=== PATIENT | female | born 1990 | race American Indian/Alaskan Native ===

== ENCOUNTER 2017-05-27 20:39 | Emergency (ER) | payer MEDICAID, OTHER ==
[2017-05-27 21:57] VITALS: BMI 27.7
--- NOTE | 2017-05-28 00:36 | US ---
EXAM: US After First Trimester, Transabdominal CLINICAL HISTORY: 27 years old, female; Pain; Pain indication: Abd pain; ; Additional info: Abdominal pain TECHNIQUE: Real-time transabdominal obstetrical ultrasound of the maternal pelvis and a second or third trimester with image documentation. COMPARISON: No relevant prior studies available. FINDINGS: Fetus: Single live intrauterine gestation. Heart rate: heart rate of 135 beats per minute. Presentation: Vertex. Placenta: Anterior placenta. No placenta previa or abruption. Amniotic fluid: MARTITA = 21.2 cm. Anatomy: No gross anomaly is appreciated. BIOMETRICS Gestational age by US: Estimated gestational age of 37 weeks 3 days by measurements. EFW: 3287 g. BPD: 9.1 cm, correlating with 36 weeks 6 days. HC: 32.6 cm, correlating with 37 weeks 0 days. AC: 34.0 cm, correlating with 37 weeks 6 days. FL: 7.5 cm, correlating with 38 weeks 1 day. MATERNAL: Uterus: Unremarkable. No myometrial mass. Cervix: No cervical dilatation or effacement. Adnexa: Ovaries not visualized. No adnexal masses. Free fluid: No significant free fluid. IMPRESSION: 1. Single live intrauterine gestation. 2. Incidental/non-acute findings are described above. EXAM: US Biophysical Profile Without Non-Stress Testing CLINICAL HISTORY: 27 years old, female; Pain; Pain indication: Abd pain; ; Additional info: Abdominal pain TECHNIQUE: Real-time ultrasound of the maternal pelvis for biophysical profile evaluation with image documentation. COMPARISON: No relevant prior studies available. FINDINGS: breathing movements: Present. Score 2/2. Gross body movements: Present. Score 2/2. tone: Present. Score 2/2. Qualitative amniotic fluid volume: Within normal limits. Score 2/2. IMPRESSION: Normal biophysical profile ultrasound. Score 8/8.
--- NOTE | 2017-05-28 00:42 | OBHP ---
Datetime: 05/28/2017 00:36 IP Adm Impression: Term, intrauterine ; No Active Labor IP Admit Plan: Discharge home Admit Comment, IP Provider: chief complaint-spotting HPI 27 y/o at 39.2wga with c/o cramping and noticing spotting Patient repprt active movement.denies abdominal trauma course uncomplicatefd as per patient; pnc with clinic in [place] PMH denies PSH denies OBGYH HX Social hx denies tobacco,alcohol or illicit drug uyse Exam vss afebrile abdomen soft and nontedner extremities no calf tenderness A/P Patient at 39.2wga with c/o contractions.cervix 1 cm dilated.unchanged fater2 hours.bpp 8/8.AF I 21.2 -patient discharged home -follow up in am for MFM scan -labor precautions given Pelvic Type - PN: Adequate Extremities - PN: Normal Abdomen - PN: Normal Back - PN: Normal Lungs - PN: Normal Heart - PN: Normal Neurologic - PN: Normal General - PN: Normal Contraction Comments Provider: occ IP Hx Assessment: The History has been Reviewed and is Current EGA AdmitDate IP: 39.2 Vital Signs Provider: Reviewed; Within Normal Limits IP Chief Complaint: Uterine contractions; Vaginal bleeding FHR Category Provider Fetus A: Category I Dilatation, Provider: 1 Effacement, Provider: 50 Station, Provider: -3 Genitourinary Exam: Normal DTRs - PN: Normal
[2017-05-28 05:00] VITALS: BP 120/71; PULSE 91
== END 2017-05-28 00:59 | disposition home or self-care (01) ==
LOC: C.EROB 20:39
DX: O47.1 False labor at or after 37 completed weeks of gestation (principal); Z3A.39 39 weeks gestation of pregnancy

== ENCOUNTER 2017-05-31 17:15 | Inpatient (IN) | payer OTHER ==
[2017-05-31] MEDS ORDERED: Lactated Ringer's 1,000 ML IV ONE (17:27)
[2017-05-31 18:08] LABS: BASO % 0.1 % (0.0-2.0); EOS % 0.1 % (0.0-4.0); HEMOGLOBIN 10.4 g/dL (11.0-16.0); LYMPH # 1.1 K/uL (1.0-4.3); LYMPH % 5.6 % (20.0-40.0); MEAN CELL VOLUME 85.9 fL (81.0-99.0); MEAN CORPUSCULAR HEMOGLOBIN 29.5 pg (27.0-31.0); MEAN CORPUSCULAR HGB CONC 34.3 g/dL (33.0-37.0); MEAN PLATELET VOLUME 9.5 fL (7.2-11.7); MONO % 5.2 % (0.0-10.0); NEUT # 16.7 K/uL (1.8-7.0); PLATELET COUNT 192 K/uL (130-400); RBC 3.53 Mil/uL (3.80-5.20); RED CELL DISTRIBUTION WIDTH 13.2 % (11.5-14.5); WHITE BLOOD COUNT 18.8 K/uL (4.8-10.8)
[2017-05-31 18:20] LABS: ALBUMIN 3.6 g/dL (3.5-5.0); ALT/SGPT 14 U/L (9-52); AST/SGOT 19 U/L (14-36); BLOOD UREA NITROGEN 6 mg/dL (7-17); CALCIUM 9.2 mg/dl (8.6-10.4); GFR AFRICAN-AMERICAN > 60; GFR NON-AFRICAN AMERICAN > 60
[2017-05-31 18:32] LABS: SQUAMOUS EPITHIAL 5 /hpf (0-5); URINE BACTERIA FEW (<OCC); URINE BILIRUBIN NEGATIVE (NEGATIVE); URINE BLOOD 2+ (NEGATIVE); URINE CLARITY Hazy (Clear); URINE COLOR Yellow (YELLOW); URINE GLUCOSE (UA) NORMAL (Normal); URINE LEUKOCYTE ESTERASE 3+ Leu/uL (Negative); URINE NITRATE NEGATIVE (NEGATIVE); URINE PROTEIN 1+ mg/dL (NEGATIVE); URINE UROBILINOGEN NORMAL mg/dL (0.2-1.0)
[2017-05-31 18:34] LABS: BARBITURATES, UR NEGATIVE (NEGATIVE); BENZODIAZEPINES, UR NEGATIVE (NEGATIVE); OPIATES, UR NEGATIVE (NEGATIVE); PHENCYCLIDINE, UR NEGATIVE (NEGATIVE)
[2017-05-31] MEDS ORDERED: Penicillin G 5 Million Unit Vial IVPB ONE (18:34)
[2017-05-31] MEDS ORDERED: Sodium Citrate/Citric Acid 15 ml Sol PO ONE (19:21)
[2017-05-31] MEDS ORDERED: cefOXitin IV 2 gm in Dextrose 2 GM/50 ML BAG IVPB ONE (19:21)
[2017-05-31 19:40] LABS: PROTHROMBIN TIME 11.1 SECONDS (9.7-12.2)
[2017-05-31 19:50] LABS: ANISOCYTOSIS SLIGHT; BANDS 4 % (0-2); LYMPHOCYTE 5 % (20-40); MONOCYTE 6 % (0-10); NEUTROPHIL 85 % (50-75); PLATELET ESTIMATE NORMAL (NORMAL); POIKILOCYTOSIS SLIGHT; TOTAL CELLS COUNTED 100
[2017-05-31 19:51] LABS: HYPOCHROMIC SLIGHT; TARGET CELLS SLIGHT; TEARDROP CELLS SLIGHT
[2017-05-31 19:52] LABS: LARGE PLATELETS PRESENT; OVALOCYTES SLIGHT
[2017-05-31] MEDS ORDERED: cefOXitin 2 GM in Sodium Chloride 0.9% 100 ML IVPB ONE (20:00)
[2017-05-31] MEDS ORDERED: Propofol 10 mg/ml Inj (20 ML) ONE (20:02)
--- NOTE | 2017-05-31 20:56 | US ---
EXAM: US Uterus, Limited CLINICAL HISTORY: 27 years old, female; Pain; Pain indication: Abd pain , tachycardia; ; Patient HX: Prior 05-27-17; Additional info: Abdominal pain, tachycardia TECHNIQUE: Real-time ultrasound of the maternal uterus (limited) with image documentation. COMPARISON: US - OB LTD/BIOPHYSICAL PROFILE 2017-05-27 23:30 FINDINGS: Fetus: Single live intrauterine gestation. Estimated gestational age of 39 weeks 5 days by dates. No gross anomaly is appreciated. Position: Vertex. Heart rate: heart rate of 179 beats per minute. Placenta: Anterior placenta. No placenta previa or abruption. Amniotic fluid: MARTITA = 12.6 cm. IMPRESSION: 1. Single live intrauterine gestation. EXAM: US Biophysical Profile Without Non-Stress Testing CLINICAL HISTORY: 27 years old, female; Pain; Pain indication: Abd pain , tachycardia; ; Patient HX: Prior 05-27-17; Additional info: Abdominal pain, tachycardia TECHNIQUE: Real-time ultrasound of the maternal pelvis for biophysical profile evaluation with image documentation. COMPARISON: US - OB LTD/BIOPHYSICAL PROFILE 2017-05-27 23:30 FINDINGS: breathing movements: Present. Score 2/2. Gross body movements: Present. Score 2/2. tone: Present. Score 2/2. Qualitative amniotic fluid volume: Within normal limits. Score 2/2. IMPRESSION: Normal biophysical profile ultrasound. Score 8/8.
[2017-05-31] MEDS ORDERED: Succinylcholine Chloride 20 mg/ml Syr (5 ml) IV ONE (21:06)
[2017-05-31] MEDS ORDERED: Oxytocin 10 Units/ml Inj ONE (21:08)
[2017-05-31] MEDS ORDERED: Oxycodone/Acetaminophen 5/325 mg Tab PO PRN ×2 (22:11)
[2017-05-31] MEDS ORDERED: HYDROmorphone 0.5 mg/0.5 ml ISec IVP PRN (22:47)
--- NOTE | 2017-06-01 00:49 | OBDS ---
DELIVERY PERSONNEL Delivery Doctor: Pascual Winchester MD Field Geologist: Catrina Quinones RN Anesthesiologist: Jessika Adams MD Resident: TRIP ARORA MATERNAL INFORMATION Delivery Anesthesia: General Medications in Delivery: PITOCIN _ HEMABATE Estimated Blood Loss (ml): 1000 Placenta Cultured: No Maternal Complications: Maternal Fever; Uterine Tachysystole RN Comments: LIVE BABY GIRL 9/9 Provider Comments: Uncomplicated primary LTCS with atraumatic delivery of live female , LOT, w eight 8lb 9oz, 's 9/9. Loose nuchal cord x 1 easily reduced over 's head. Manual extractio n of placenta; no gross evidence of abruption. Grossly normal placenta; 3 vessel cord. Routine closur e of uterus. Bladder flap reapproximated. Left ovarian cyst noted 4 x 5 x 3 cm - probable dermoid cys t (sebum and hair retrieved upon entering cyst). Left ovarian cystectomy performed. Otherwise, normal fallopian tubes bilaterally, and normal right ovary. Copious irrigation performed. Hemostasis assure d. Routine closure. Skin reapproximated in a subcuticular fashion. Patient tolerated procedure well; to LDR#2 in stable conditio. Infant to nursery - also in stable condition. LABOR SUMMARY EDC: 06/02/2017 00:00 No. Babies in Womb: 1 Attempted: No Labor Anesthesia: None LABOR INFORMATION Onset of Labor: 05/31/2017 15:00 Group B Beta Strep: Positive MEMBRANES Membranes Rupture Method: Artificial STAGES OF LABOR Stage 3 hrs: 0 Stage 3 min: 1 Total Time in Labor hrs: 6 Total Time in Labor min: 2 CSECTION DELIVERY Primary Indication: tachycardia Other Primary Indication: Uterine tachysystole Secondary Indication: Maternal fever Other Secondary Indication: Uterine tenderness CSection Incision: Lower Uterine Transverse Uterine Closure: Double-layer closure BABY A INFORMATION Delivery Date/Time: 05/31/2017 21:01 Method of Delivery: Born in Route : No : N/A Forceps: N/A Vacuum Extraction: N/A Shoulder Dystocia : No SHOULDER DYSTOCIA BABY A Infant Delivery Date/Time: 05/31/2017 21:01 PRESENTATION/POSITION BABY A Presentation: Cephalic Cephalic Presentation: Vertex Vertex Position: Left Occipital Transverse Breech Presentation: N/A PLACENTA INFORMATION BABY A Placenta Delivery Time : 05/31/2017 21:02 Placenta Method of Delivery: Manual Removal Placenta Status: Delivered SCORES BABY A Heart Rate 1 min: >100 bpm Resp Effort 1 min: Good Cry Reflex Irritability 1 min: Cough or Sneeze or Pulls Away Muscle Tone 1 min: Active Motion Color 1 min: Body [place], Extremities Blue Resuscitation Effort 1 min: Tactile Stimulation; Oxygen SCORE 1 MIN: 9 Heart Rate 5 min: >100 bpm Resp Effort 5 min: Good Cry Reflex Irritability 5 min: Cough or Sneeze or Pulls Away Muscle Tone 5 min: Active Motion Color 5 min: Body [place], Extremities Blue Resuscitation Effort 5 min: Tactile Stimulation SCORE 5 MIN: 9 INFANT INFORMATION BABY A Gestational Age at Delivery: 39.5 Gestational Status: Term Infant Outcome : Liveborn Infant Condition : Stable Infant Sex: Female IDENTIFICATION/MEDS BABY A ID Band Number: [id number] ID Band Location: Left Leg; Left Arm Sensor Applied: Yes Sensor Number: [id number] Sensor Location : Cord Clamp WEIGHT/LENGTH BABY A Birthweight (gms): 3885 Infant Weight (lb): 8 Weight (oz): 9 Infant Length Inches: 21.00 Length cms: 53.3 CORD INFORMATION BABY A No. Cord Vessels: 3 Nuchal Cord : Around Neck x1, Loose Cord Blood Taken: Yes Infant Suction: Mouth; Nose; Pharynx ASSESSMENT BABY A Infant Complications: None Physical Findings at Delivery: Within Normal Limits Infant Respirations: Appears Normal Cigarette Seller/ALS Called : No Care By: /JULIA AYALA Transferred To: [facility]
--- NOTE | 2017-06-01 01:22 | PCM.SURG1 ---
Surgeon's Initial Post Op Note - Surgeon's Notes Surgeon: Edith Winchester MD Sugar Cane Planter: Neeta Rangel DO, PGY-1. 2nd Assist: Piotr Maxwell MS-3 Type of Anesthesia: General Endo Anesthesia Administered By: Catalina Adams MD Pre-Operative Diagnosis: 39w 5d, tachycardia, uterine tachysystole, maternal fever; remote from delivery Operative Findings: Live female , LOT position, Weight 8lb 9oz; 's 9/ 9. Normal uterus. Normal right ovary and fallopian tubes bilaterally. Left ovarian cyst, 5 x 5 x 4 cm - upon opening, sebum, grease and hair Post-Operative Diagnosis: S/P primary LTCS; left dermoid cyst Operation Performed: Primary transverse lower uterine segment section; left ovarian cystectomy Specimen/Specimens Removed: Placenta; left ovarian cyst with contents Estimated Blood Loss: EBL {In ML}: 1,000 (U.O. 500 mL clear urine; 1800 mL total with 40 units pitocin in 1st litre. Hemabate 250 micrograms IM x 1 also given) Blood Products Given: N/A Drains Used: No Drains Post-Op Condition: Good Date of Surgery/Procedure: 05/31/17 Time of Surgery/Procedure: 22:00
[2017-06-01] MEDS: cefOXitin 2 GM in Sodium Chloride 0.9% 100 ML IVPB SCH ×3 (04:29→20:14)
[2017-06-01 07:53] LABS: BASO % 0.1 % (0.0-2.0); LYMPH # 1.2 K/uL (1.0-4.3); LYMPH % 5.7 % (20.0-40.0); MEAN CELL VOLUME 86.6 fL (81.0-99.0); MEAN CORPUSCULAR HEMOGLOBIN 29.9 pg (27.0-31.0); MEAN CORPUSCULAR HGB CONC 34.5 g/dL (33.0-37.0); MEAN PLATELET VOLUME 9.8 fL (7.2-11.7); MONO # 0.9 K/uL (0.0-0.8); MONO % 4.5 % (0.0-10.0); NEUT # 18.5 K/uL (1.8-7.0); NEUT % 89.7 % (50.0-75.0); PLATELET COUNT 142 K/uL (130-400); WHITE BLOOD COUNT 20.6 K/uL (4.8-10.8)
[2017-06-01 08:06] LABS: HEMOGLOBIN 7.8 g/dL (11.0-16.0)
--- NOTE | 2017-06-01 08:21 | OBADHP ---
Datetime: 05/31/2017 18:10 Admit Comment, IP Provider: 27 y.o. , LMP unsure, ZACH 06/02/17, EGA 39w 5d c/o sudden onset l ower abdominal pain, right > left, while picking up son from school; pain scale 10/10; localized to a bdomen. Patient was seen on L_D 05/27 with c/o vaginal bleeding. Sono performed then - Anterior plac enta, no evidence of praevia or abruption; cephalic; EFW 3287 gram; BPS 8/8 (MARTITA 21.2cm). ca re: [place]/ [place]: noted for trich infection x 3 (12/31, 03/02, 05/03); placenta praevia suspected 12/31; ruled out 03/06/17. P Ob: 2014, , male, 7lb 14oz, [facility]; no complications. VTOP x 2, both first trimestre; w ith D_C, no complications P BOARDMARKER: 12 x monthly x 3-5. No other STIs, abnormal Pap, fibroids or ovarian cysts PMH: denies PSH: D_C x 2 NKDA Meds: PNV Soc Hx: denies tobacco., illicit drug or EtOH use. x 6 years. 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 Fam Hx: Mother alive 50 y.o. Breast cancer survivor x 10 yrs, DM. Father alive 50 y.o. DM. No othe r P.E.: as above. WD in pain with contractions. Awake, alert, oriented to time, person and place. Pl easant and cooperative. present Assessment: 27 y.o., 39w 5d, uterine tachysystole, tachycardia (temp 100 Fahrenheit ), variable deceleration, not in labor. DDX: abruption. chart review noted for cardiac eval uation for c/o dyspnea: S/P maternal ECHO - EF 78%; grossly normal ventricular function; mild mitral regurgitation. Also, patient noted to be anemic - most recent H/H 02/12.2, patient with h/o sickle c ell trait. GBS UTI, treated 02/2017. Labs noted for WBC 18; H/H 10.8/ Plan: 1) Admit 2) NPO 3) Continuous EFM 4) CBC, comp, coagulation profile, HIV, RPR, T_S 5) Observe Addendum: 1930 hours repeat Temp 101.4; FHR remain 180s bpm; decreased variability. Uterine tachysystole continues. Abdominal tenderness not improved D/W patient and concern for: abruption versus infection. R/B/C of continuing bill umu delivery were discussed. As patient is only 1-2 cm, remote from delivery, abdominal delivery was recommended. Patient and 's questions were addressed and answered. The couple were left alone to come to a decision. Patient is S/P portable ultrasound: no evidence of abruption. BPS 8/8; MARTITA 12. cm. It was discuss ed with the couple that BPP is reassuring at this time; however, fetus remains tachycardia, patient s till with painful contractions every 1 minute and uterus remains tender. With fever, chorioramnioniti s is more likely, however, abruption has not been ruled out. As patient is remote from delivery C/S is still recommended. Patient has agreed to proceed with C/S. Plan: 1) Abdominal prep and shave 2) Soto 3) Notify peds, 4) Notify anesthesia 5) call box wirer to O.R. Pelvic Type - PN: Adequate Extremities - PN: Normal Abdomen - PN: Abnormal Back - PN: Normal Breast - PN: Not Done Lungs - PN: Normal Heart - PN: Normal Thyroid - PN: Not Done Neurologic - PN: Normal HEENT - PN: Normal General - PN: Normal Presentation-Admit: Vertex FHR - Baseline A Provider: 180 Contraction Comments Provider: 1 minute Comments, ACOG Physical Exam: Abdomen: Gravid. firm; (+) tender in all quadrants; with and without contractions. Fundal height 39cm All other systems reviewed - see History/Assessment Gestation - Est Wks by US: 39w 5d Vital Signs Provider: Reviewed; Within Normal Limits IP Chief Complaint: Uterine contractions NICHD Decel Fetus A IP Provider: Variable Dilatation, Provider: 1 Effacement, Provider: 30 Station, Provider: -3 Genitourinary Exam: Normal DTRs - PN: Not Done EGA AdmitDate IP: 39.5 IP Adm Impression: Term, intrauterine ; No Active Labor IP Admit Plan: Admit to unit Datetime: 05/28/2017 00:36 IP Hx Assessment: The History has been Reviewed and is Current FHR Category Provider Fetus A: Category I
[2017-06-01] MEDS: Simethicone 80 mg Chewtab PO SCH ×4 (10:24→22:09)
[2017-06-01 10:43] LABS: TOTAL CELLS COUNTED 100
[2017-06-01 10:45] LABS: BANDS 9 % (0-2); LYMPHOCYTE 7 % (20-40); MONOCYTE 3 % (0-10); NEUTROPHIL 81 % (50-75)
[2017-06-01 10:46] LABS: PLATELET ESTIMATE NORMAL (NORMAL)
--- NOTE | 2017-06-01 10:46 | OP ---
PROCEDURE DATE: 05/31/2017. SURGEON: Edith Winchester MD. FELT DYEING MACHINE TENDER: Neeta Rangel DO PGY-1. SECOND SWEET PICKLE MAKER: Piotr Maxwell MS-3. ANESTHESIA: General with endotracheal intubation. ANESTHESIOLOGIST: Valarie Akers MD PREOPERATIVE DIAGNOSES: 39 weeks and 5 days gestation, tachycardia, uterine tachysystole, maternal fever remote from delivery. POSTOPERATIVE DIAGNOSES: 39 weeks and 5 days gestation, tachycardia, uterine tachysystole, maternal fever remote from delivery. Left dermoid cyst. OPERATIVE FINDINGS: Live female infant, left occipital transverse position, weight 8 pounds 9 ounces, 's 9 and 9 at one and five minutes, respectively. Normal uterus, normal right ovary and normal fallopian tubes bilaterally. Left ovarian cyst approximately 5 x 5 x 4 cm and upon opening sebum and hair were noted. OPERATION PERFORMED: 1) Primary transverse lower uterine segment Caesarean section. 2) left ovarian cystectomy. SPECIMENS: Placenta and left ovarian cyst with its contents. ESTIMATED BLOOD LOSS: 1000 mL. URINE OUTPUT: 500 mL. TOTAL INTRAVENOUS FLUIDS: 1800 mL: first 1000 mL was with 40 units of Pitocin and the second 800 was with 20 units Pitocin. Hemabate 250 micrograms IM were also given. BLOOD PRODUCTS: None. COMPLICATIONS: None. PROCEDURE: The patient was taken to the operating room after having obtained informed consent for the anticipated procedure. This included a discussion of potential risks and complications including but not limited to infection, hemorrhage requiring a blood transfusion, repair of any damage to internal organs, possible Caesarean hysterectomy. The patient had expressed an understanding and all questions were answered. The patient had received Mefoxin 2 gm prior to being transferred to the recovery room: her abdomen had been prepped and shaved; a Soto catheter had been inserted under sterile conditions. The patient was then transferred to the operating room; on the operating room table, she was placed in a supine position. The abdomen was prepped and draped in the usual sterile fashion. General anesthesia with endotracheal intubation was administered without incident. Once the endotracheal tube was secured, Pfannenstiel incision was made on the skin using a scalpel. The incision was carried down through the subcutaneous tissue using the same scalpel. The fascia was nicked and it was by blunt dissection. Rectus muscle was by blunt dissection and the peritoneal cavity was entered by blunt dissection. A transverse incision was then made on lower uterine segment. Amniotomy was performed and fluid was clear. Atraumatic delivery of the infant with the findings as above. Upon presenting of the head, loose nuchal cord was noticed - it was easily reduced over the 's head. The rest of the body was delivered without incident. On the operative field, the infant's mouth and nose were bulb suctioned as the umbilical cord was doubly clamped and cut. The was handed off the operative field to the extract wringer in attendance. A segment umbilical cord was obtained for cord pH analysis. Manual extraction of the placenta was then performed; it was grossly intact with three vessels present in the cord. The uterus was exteriorized for closure. On the operative field, it was noted to be boggy; the decision was made to add in addition to the first 20 units of Pitocin, an additional 20 units for total of 40; also, Hemabate 250 micrograms were administered. The uterus was then firm. Uterine closure then ensued in two layers. The first layer with a running interlocking fashion using 0 Vicryl, the second layer was in a horizontal imbricating fashion. After assuring hemostasis, attention was directed to the posterior aspect of the uterus. Copious irrigation was performed. Attention was then redirected to the uterine incision, it was noted to be hemostatic. The bladder flap had been created; the peritoneal reflection was reapproximated using 2-0 chromic in a running fashion. Upon examining the pelvic organs, the decision was made to perform a cystectomy. Several moist lap pads were placed at the base of the left ovary and cyst. Using a scalpel, an incision was made on the tunica albuginea of the left ovary. A small amount of greasy cystic fluid of the cyst were released. The cyst wall was identified and using alternating traction and counter traction, left ovarian cystectomy was performed. During this procedure congealed grease/sebum and hair were noted. The cyst was removed more or less intact. Hemostasis was assured using the Bovie electrocautery. Surgicel was placed and the edges of the ovary were reapproximated using 4-0 Monocryl in a running interlocking fashion. Hemostasis was assured. Additional irrigation was performed. The uterus was returned to the abdominal cavity. The paracolic gutters were cleared of all debris. Hemostasis was assured. The parietal peritoneum was reapproximated using 2-0 chromic in a running fashion and the rectus muscle was reapproximated using 2-0 chromic in a running fashion. Fascia was reapproximated using 1-0 Vicryl in a running fashion in one stitch. The subcutaneous tissue was reapproximated using plain catgut in a running fashion and the skin was reapproximated using 4-0 Vicryl in a Mele needle. Steri-Strips were applied as was a pressure dressing. The patient was then positioned in a frog-leg manner and uterine evacuation was performed with the egress of additional blood and clots. The uterus was firm and contracted, approximately at the level of the umbilicus. The patient tolerated the procedure well. She was transferred back to [facility] in stable condition. The had been [facility] in stable condition. Edith Winchester MD MTDRogerio
[2017-06-01 10:47] LABS: TEARDROP CELLS SLIGHT
--- NOTE | 2017-06-01 16:59 | OBPPN ---
Datetime: 06/01/2017 09:52 PP Pain Prov: Within normal limits PP Nausea Prov: Denies PP Flatus Prov: No PP BM Prov: No PP Breasts Prov: Normal PP Heart Prov: Normal PP Lungs Prov: Normal PP Abdomen/Uterus Prov: Normal PP Lochia Prov: Normal PP Vulva/Perineum Prov: Normal PP CVA Tenderness Prov: Normal PP Extremities Prov: Normal PP Impression Prov: Normal progression PP Plan Prov: Continue present management PP Progress Note Prov: Patient seen and examined at bedside. Per nursing no acute events overnight. Patient is doing well, pain is controlled. Lochia is moderate. Not yet ambulating, bauer in draining clear yellow urine. Denies passing flatus or BM. Breast feeding. Denies headaches, dizziness, cp, pal pitations, sob, urinary symptoms. VS: 114/67 92 99.2 I/O: 3125/1400 Gen: AAOx3 CV: RRR Lungs: CTA B/L Abd: Soft, appropriately tender, fundus firm below umbilicus, dressing c/d/i Ext: No clubbing, cyanosis, edema; no calf tenderness Labs: 18.8>10.4/30.3<192 20.6>7.8/22.5<142 O positive Rubella non-immune A/P: 27 year old at 39w5d s/p PLTCD 2/2 tachycardia POD#1 -Stable, afebrile -Pain control: percocet and motrin prn -F/U rubella -Continue antibiotics -Advance diet as tolerated -Remove bauer if urine output adequate, f/u voiding trial -Encourge -Continue routine care -Plan discussed with attending Neeta Rangel DO PGY-1 agree iwth above pt seen adn examiend pain mangment f/u am labs bowel remigement encuarbe ambuaitn, bresast feeding Vital Signs Provider PP: Reviewed; Within Normal Limits
[2017-06-02 07:20] LABS: BASO # 0.1 K/uL (0.0-0.2); BASO % 0.3 % (0.0-2.0); EOS # 0.1 K/uL (0.0-0.7); EOS % 0.4 % (0.0-4.0); HEMOGLOBIN 7.4 g/dL (11.0-16.0); LYMPH # 1.6 K/uL (1.0-4.3); LYMPH % 7.5 % (20.0-40.0); MEAN CELL VOLUME 86.5 fL (81.0-99.0); MEAN CORPUSCULAR HGB CONC 34.7 g/dL (33.0-37.0); MEAN PLATELET VOLUME 9.5 fL (7.2-11.7); MONO # 1.1 K/uL (0.0-0.8); MONO % 5.2 % (0.0-10.0); NEUT # 18.5 K/uL (1.8-7.0); NEUT % 86.6 % (50.0-75.0); PLATELET COUNT 152 K/uL (130-400); RBC 2.46 Mil/uL (3.80-5.20); RED CELL DISTRIBUTION WIDTH 13.2 % (11.5-14.5); WHITE BLOOD COUNT 21.3 K/uL (4.8-10.8)
[2017-06-02] MEDS: Simethicone 80 mg Chewtab PO SCH ×4 (09:15→23:35)
--- NOTE | 2017-06-02 09:25 | OBPPN ---
Datetime: 06/02/2017 08:54 PP Pain Prov: Within normal limits PP Nausea Prov: Denies PP Flatus Prov: Yes PP BM Prov: No PP Breasts Prov: Normal PP Heart Prov: Normal PP Lungs Prov: Normal PP Abdomen/Uterus Prov: Normal PP Lochia Prov: Normal PP Extremities Prov: Normal PP C/S Incision Prov: Normal PP Progress Prov: Normal PP Comments Phys Exam Prov: incision: c/d/i uterus: nt, firm, 2cm below PP Impression Prov: Normal progression PP Plan Prov: Continue present management PP Progress Note Prov: Patient seen and examined at bedside. Per nursning no acute events overnight. Patient is doing well, pain is controlled. Lochia is mild. Ambulating and tolerating diet. Passing f latus, no BM. Urinating without difficulty. Breast feeding. Denies headaches, dizziness, cp, palpitat ions, sob, urinary symptoms. VS: BP: 110/69 HR 96 Temp: 98.1 Gen: AAOx3 CV: RRR Lungs: CTA B/L Breast: non-engorged Abd: Soft, appropriately tender, fundus firm 1 fingerbreath below umbilicus, incision c/d/i with s teristrips Ext: No clubbing, cyanosis, edema; no calf tenderness Labs: 18.8>10.4/30.3<192 20.6>7.8/22.5<192 21.3>7.4/21.3<152 O positive Rubella immune A/P: 27 year old at 39w5d s/p PLTCD 2/2 tachycardia POD#2 -Stable, afebrile -Pain control: percocet and motrin prn -Anemia: Continue ferrous sulfate PO BID -Encourage ambulation and hydration -Encourage -Continue routine care -Anticipate d/c home tomorrow -Plan discussed with Dr Marquez Lee DO PGY-1 Neeta Lee DO PGY-1 [facility] addendum: pt seen _ examined by me w/ dr. lee. agree w/ above assessment and plan. s: denies h/o gastritis/nikolas. tolerates nsaid well. p: d/c medsfor tomorrow feso4, pnv, motrin 600#26 no refill percocet5/325 #26 no rf pt advised percocet can be addicting and to use sparingly when d/c'd home IP PP Procedures: None Vital Signs Provider PP: Reviewed; Within Normal Limits
[2017-06-02 09:31] LABS: BANDS 8 % (0-2); EOSINOPHIL 1 % (0-4); MONOCYTE 5 % (0-10); TOTAL CELLS COUNTED 100
[2017-06-02 09:32] LABS: LYMPHOCYTE 8 % (20-40); NEUTROPHIL 78 % (50-75); PLATELET ESTIMATE NORMAL (NORMAL)
--- NOTE | 2017-06-03 08:16 | OBPPN ---
Datetime: 06/03/2017 08:09 PP Pain Prov: Within normal limits PP Nausea Prov: Denies PP Flatus Prov: Yes PP BM Prov: Yes PP Heart Prov: Normal PP Lungs Prov: Normal PP Abdomen/Uterus Prov: Normal PP Lochia Prov: Normal PP Vulva/Perineum Prov: Normal PP CVA Tenderness Prov: Normal PP Extremities Prov: Normal PP Impression Prov: Normal progression PP Plan Prov: Continue present management PP Progress Note Prov: s: no c/o. tolerating reg diet i: pod3 doing well p: d/c home f/u 8-10days in ob clinic IP PP Procedures: None Vital Signs Provider PP: Within Normal Limits
--- NOTE | 2017-06-03 08:18 | OBDCSUM ---
Datetime: 06/03/2017 08:15 Discharged to, Provider: Home Follow up at, Provider: [facility] Disch Instr Activity: Normal activity; May Shower Disch Instr Diet: Regular Discharge Instructions, Provider: Specific instructions as noted Discharge Diagnosis, Provider: Term Delivered Follow up in weeks, Provider: 8-10days Disch Referrals: None Discharge Instruct Comment, Prov: pp and postop instructions Disch Activity Restrictions: No exercising; No lifting; No driving; No sexual activity; Nothing in v agina - [place], tampons, douche Contraception after Delivery: Undecided
[2017-06-03 08:32] VITALS: BP 107/55; PULSE 80; RESP 18; TEMP 98.9; O2SAT 99
[2017-06-03] MEDS: Simethicone 80 mg Chewtab PO SCH ×2 (09:01→14:13)
== END 2017-06-03 15:43 | disposition home or self-care (01) | DRG 370 ==
LOC: C.EROB 17:15 → UNDOADMIN 18:30 → C.4D 18:30 → C.4M 06-01 01:00
PROVIDERS: ADMIT Obstetrics & Gynecology; ATTEND Obstetrics & Gynecology
PROC: 10D00Z1 Extraction of Products of Conception, Low, Open Approach (ICD-10-PCS; principal; 2017-05-31)
PROC: 0UB10ZZ Excision of Left Ovary, Open Approach (ICD-10-PCS; 2017-05-31)
DX: O76 Abnormality in fetal heart rate and rhythm complicating labor and delivery (principal); O34.83 Maternal care for other abnormalities of pelvic organs, third trimester; O99.42 Diseases of the circulatory system complicating childbirth; O45.93 Premature separation of placenta, unspecified, third trimester; O75.2 Pyrexia during labor, not elsewhere classified; D27.1 Benign neoplasm of left ovary; I34.0 Nonrheumatic mitral (valve) insufficiency; O69.81X0 Labor and delivery complicated by cord around neck, without compression, not applicable or unspecified; N83.202 Unspecified ovarian cyst, left side; Z3A.39 39 weeks gestation of pregnancy; Z37.0 Single live birth